=== PATIENT | female | born 1990 | race Caucasian/White ===

== ENCOUNTER → 2017-01-05 | Outpatient (CLI) | payer OTHER ==
[~2017-01-05] MED LIST: BACT800T5 PO; CEPH500C3 PO; TRIA.1%T TOP; Z.0.NO CURRENT MEDS
== END ==
LOC: HPND 09:24
PROVIDERS: ATTEND Obstetrics & Gynecology
DX: O35.8XX0 Maternal care for other (suspected) fetal abnormality and damage, not applicable or unspecified (principal); O44.42 Low lying placenta NOS or without hemorrhage, second trimester
CPT/HCPCS: 36415; 76811

== ENCOUNTER → 2017-02-02 | Outpatient (CLI) | payer OTHER | LOC: HPND 10:09 | PROVIDERS: ATTEND Obstetrics & Gynecology | DX: O35.1XX0 Maternal care for (suspected) chromosomal abnormality in fetus, not applicable or unspecified (principal) | CPT/HCPCS: 76816 ==